=== PATIENT | male | born 1945 | race Caucasian/White ===

== ENCOUNTER 2022-08-25 06:20 | Inpatient (IN) | payer OTHER ==
[2022-08-20 12:44] VITALS: BMI 22.4
[2022-08-25] MEDS ORDERED: GENTAMICIN SO4 80 MG/2 ML VIAL ONE (06:51)
[2022-08-25] MEDS ORDERED: THROMBIN (BOVINE) 5,000 UNIT VIAL TP ONE ×4 (06:51→10:48)
[2022-08-25] MEDS ORDERED: ceFAZolin SODIUM 1 GM VIAL IVPB ONE ×3 (07:27→11:23)
[2022-08-25] MEDS ORDERED: LIDOCAINE 1%/EPI 1:100000 (20 ML MULTI DOSE VIAL) IJ ONE ×3 (07:27→10:32)
[2022-08-25] MEDS ORDERED: VANCOMYCIN 1 GM in D5W (PRE-DOCKED) 1,000 MG/250 ML (RESTRICTED TO ID ONLY IVPB ONE ×2 (07:28→08:30)
[2022-08-25] MEDS ORDERED: GENTAMICIN 80MG PREMIX BAG IVPB ONE ×2 (07:28→09:43)
[2022-08-25] MEDS ORDERED: HYDROGEN PEROXIDE 473 ML PO ONE ×2 (07:29→09:43)
[2022-08-25] MEDS ORDERED: ROCURONIUM BROMIDE 50 MG/5 ML SYRINGE ONE ×3 (07:32→10:35)
[2022-08-25] MEDS ORDERED: MIDAZOLAM HCL 2 MG/2 ML SINGLE DOSE VIAL ONE (07:32)
[2022-08-25] MEDS ORDERED: PROPOFOL 20 ML ONE (07:32)
[2022-08-25] MEDS ORDERED: HYDROmorphone HCl 2 MG/ML VIAL ONE (09:10)
[2022-08-25] MEDS ORDERED: BACITRACIN ZINC 15 GM TUBE TOPICAL OINTMENT ONE (09:49)
[2022-08-25] MEDS ORDERED: ONDANSETRON 4 MG/2 ML VIAL ONE (11:22)
[2022-08-25] MEDS ORDERED: KETOROLAC TROMETHAMINE 30 MG/1 ML VIAL ONE (11:22)
[2022-08-25] MEDS ORDERED: ePHEDrine SULFATE 50 MG/1 ML AMPULE ONE (11:22)
[2022-08-25] MEDS ORDERED: DEXAMETHASONE SOD PHOSPHATE 4 MG/1 ML VIAL ONE (11:22)
[2022-08-25] MEDS ORDERED: PHENYLEPHRINE HCL 10 MG/1 ML SINGLE DOSE VIAL ONE (11:22)
[2022-08-25] MEDS ORDERED: LABETALOL HCL 20 MG/4 ML VIAL ONE (11:22)
[2022-08-25] MEDS ORDERED: ceFAZolin SODIUM 1 GM VIAL ONE (11:22)
[2022-08-25] MEDS ORDERED: TRANEXAMIC ACID 1000 MG/10 ML VIAL ONE (11:22)
[2022-08-25] MEDS ORDERED: GLYCOPYRROLATE 0.2 MG/1 ML VIAL ONE (11:35)
[2022-08-25] MEDS ORDERED: NEOSTIGMINE METHYLSULFATE 0.5 MG/1 ML - 10 ML MDV ONE (11:35)
[2022-08-25] MEDS ORDERED: ONDANSETRON 4 MG/2 ML VIAL IVPUSH PRN ×2 (12:24→12:40)
[2022-08-25] MEDS ORDERED: ACETAMINOPHEN 1000 MG/100 ML BAG IVPB ONE (12:25)
[2022-08-25] MEDS ORDERED: LACTATED RINGERS SOLUTION 1,000 ML IV SCH (12:30)
[2022-08-25] MEDS ORDERED: diphenhydrAMINE HCL 25 MG CAPSULE (FP) PO PRN (12:40)
[2022-08-25] MEDS ORDERED: oxyCODONE HCL 5 MG TABLET PO PRN ×2 (12:40)
[2022-08-25] MEDS ORDERED: morphine SULFATE 4 MG/ML VIAL IVPUSH PRN (12:40)
[2022-08-25] MEDS: DOCUSATE SODIUM 100 MG CAPSULE (FP) PO SCH ×2 (16:28→22:00)
[2022-08-25] MEDS ORDERED: INSULIN (NOVOLOG) ASPART 100 UNITS/ML 10ML VIAL ONE (16:54)
[2022-08-25] MEDS: INSULIN SLIDING SCALE (NOVOLOG) 1 VIAL SQ SCH (17:01)
[2022-08-25] MEDS: CEFAZOLIN 1 GM in DEXTROSE 5%-WATER - 50 ML IVPB SCH (17:29)
[2022-08-25] MEDS: HEPARIN NA (PORCINE) 5,000 UNITS/ML 1ML VIAL SQ SCH (22:00)
[2022-08-25] MEDS ORDERED: metFORMIN HCL 500 MG TABLET (FP) PO SCH (22:00)
[2022-08-25] MEDS: ATORVASTATIN CA 10 MG TABLET (FP) PO SCH (22:00)
[2022-08-26] MEDS: CEFAZOLIN 1 GM in DEXTROSE 5%-WATER - 50 ML IVPB SCH ×3 (02:37→17:43)
[2022-08-26] MEDS ORDERED: INSULIN (NOVOLOG) ASPART 100 UNITS/ML 10ML VIAL ONE ×2 (06:19→11:18)
[2022-08-26] MEDS: HEPARIN NA (PORCINE) 5,000 UNITS/ML 1ML VIAL SQ SCH ×3 (06:37→22:54)
[2022-08-26] MEDS: DOCUSATE SODIUM 100 MG CAPSULE (FP) PO SCH ×3 (06:39→22:54)
[2022-08-26] MEDS: INSULIN SLIDING SCALE (NOVOLOG) 1 VIAL SQ SCH ×4 (06:40→22:58)
[2022-08-26] MEDS: FOLIC ACID 1 MG TABLET (FP) PO SCH (09:22)
[2022-08-26 09:58] LABS: HEMATOCRIT 35.9 % (35.4-49); HEMOGLOBIN 12.4 GM/dL (11.7-16.9); MCH 30.2 pg (25.7-33.7); MCHC 34.5 g/dl (32.0-35.9); MEAN CELL VOLUME 87.3 fl (80-96); MEAN PLT VOLUME 9.4 fl (7.5-11.1); PLATELET COUNT 204 10^3/uL (134-434); RDW 12.9 % (11.9-15.9); WHITE BLOOD COUNT 8.3 K/mm3 (4.0-10.0)
[2022-08-26 10:16] LABS: POTASSIUM 3.9 mmol/L (3.5-5.1)
[2022-08-26 10:20] LABS: CALCIUM 8.2 mg/dL (8.5-10.1)
[2022-08-26 10:21] LABS: BLOOD UREA NITROGEN 15.6 mg/dL (7-18)
[2022-08-26 10:24] LABS: CREATININE 0.9 mg/dL (0.55-1.3)
[2022-08-26] MEDS: ACETAMINOPHEN 500 MG TABLET (FP) PO SCH ×2 (13:26→22:58)
[2022-08-26 19:10] VITALS: RESP 20
[2022-08-26] MEDS: ATORVASTATIN CA 10 MG TABLET (FP) PO SCH (22:53)
[2022-08-27] MEDS: CEFAZOLIN 1 GM in DEXTROSE 5%-WATER - 50 ML IVPB SCH ×2 (02:31→10:51)
[2022-08-27] MEDS: HEPARIN NA (PORCINE) 5,000 UNITS/ML 1ML VIAL SQ SCH (06:14)
[2022-08-27] MEDS: ACETAMINOPHEN 500 MG TABLET (FP) PO SCH (06:16)
[2022-08-27] MEDS: INSULIN SLIDING SCALE (NOVOLOG) 1 VIAL SQ SCH ×2 (06:17→11:56)
[2022-08-27] MEDS: DOCUSATE SODIUM 100 MG CAPSULE (FP) PO SCH (06:17)
[2022-08-27 08:43] LABS: BASO % 0.3 % (0-2.0); EOS % 0.3 % (0-4.5); HEMATOCRIT 38.1 % (35.4-49); HEMOGLOBIN 12.4 GM/dL (11.7-16.9); LYMPH % 24.4 % (8-40); MCH 29.2 pg (25.7-33.7); MCHC 32.6 g/dl (32.0-35.9); MEAN CELL VOLUME 89.5 fl (80-96); MEAN PLT VOLUME 10.3 fl (7.5-11.1); MONO % 11.5 % (3.8-10.2); NEUT % 63.5 % (42.8-82.8); PLATELET COUNT 211 10^3/uL (134-434); RBC 4.26 M/mm3 (4.00-5.60); RDW 13.1 % (11.9-15.9); WHITE BLOOD COUNT 7.2 K/mm3 (4.0-10.0)
[2022-08-27 08:59] LABS: POTASSIUM 4.1 mmol/L (3.5-5.1)
[2022-08-27 09:02] LABS: BLOOD UREA NITROGEN 14.3 mg/dL (7-18); CALCIUM 8.5 mg/dL (8.5-10.1); MAGNESIUM 2.3 mg/dL (1.8-2.4)
[2022-08-27 09:05] LABS: CREATININE 0.9 mg/dL (0.55-1.3)
[2022-08-27 09:07] LABS: BILIRUBIN,TOTAL 1.4 mg/dL (0.2-1); TOT PROT 5.4 g/dl (6.4-8.2)
[2022-08-27] MEDS: FOLIC ACID 1 MG TABLET (FP) PO SCH (09:57)
[2022-08-27] MEDS ORDERED: POLYETHYLENE GLYCOL (HEALTHYLAX) 3350 17 GM PACKET PO SCH (10:00)
[2022-08-27 10:16] VITALS: BP 111/63; PULSE 83; TEMP 98.1
== END 2022-08-27 12:44 | disposition home or self-care (01) | DRG 455 ==
LOC: J2C 06:20 → J8W 14:40
PROVIDERS: ADMIT Internal Medicine; ATTEND Nurse Practitioner Acute Care
PROC: 0RB30ZZ Excision of Cervical Vertebral Disc, Open Approach (ICD-10-PCS; 2022-08-25)
PROC: 00NW0ZZ Release Cervical Spinal Cord, Open Approach (ICD-10-PCS; 2022-08-25)
PROC: 4A11X4G Monitoring of Peripheral Nervous Electrical Activity, Intraoperative, External Approach (ICD-10-PCS; 2022-08-25)
PROC: 0RG20A0 Fusion of 2 or more Cervical Vertebral Joints with Interbody Fusion Device, Anterior Approach, Anterior Column, Open Approach (ICD-10-PCS; principal; 2022-08-25 08:00)
PROC: 0RG2071 Fusion of 2 or more Cervical Vertebral Joints with Autologous Tissue Substitute, Posterior Approach, Posterior Column, Open Approach (ICD-10-PCS; 2022-08-25 08:00)
DX: M47.12 Other spondylosis with myelopathy, cervical region (principal); M40.202 Unspecified kyphosis, cervical region; I10 Essential (primary) hypertension; E78.5 Hyperlipidemia, unspecified; M54.2 Cervicalgia; E11.9 Type 2 diabetes mellitus without complications
CPT/HCPCS: 36415; 72125-TC; 76000-TC-FY; 80048; 80053; 82962; 83735; 85025; 85027; 86850; 86900; 86901; 94010; 94760; 97116-GP; 97161-GP; C1713; C1889; J1644